=== PATIENT | male | born 1950 | race Caucasian/White ===

== ENCOUNTER → 2023-02-07 | Outpatient (CLI) | payer MEDICARE, SELFPAY | END | disposition home or self-care (01) | LOC: LABSPEC 16:44 | PROVIDERS: PCP Family Medicine; Referring Provider Otolaryngology; Visit Provider Otolaryngology | DX: H92.10 Otorrhea, unspecified ear (principal) | CPT/HCPCS: 87070; 87075; 87077; 87205 ==

== ENCOUNTER 2023-09-09 17:23 | Emergency (ER) | payer MEDICARE, SELFPAY ==
[2023-09-09] VITALS (8 sets, daily range): BP systolic 118–161; BP diastolic 61–85; PULSE 76–109; RESP 8–27; TEMP 37.1–39.3; O2SAT 94–100; BMI 33.2
--- NOTE | 2023-09-09 18:45 | EX.ED.DYSGE1 ---
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 Patient states earlier today, he felt like a truck hit me . He states he had the rigors, he checked his fever and it was greater than 100. Patient denies any cough, patient states when he urinates he does feel some pressure in his right flank however he has no blood, no other significant pain. Patient denies any nausea or vomiting. Denies any sick contacts. Denies any recent biotic use. [facility] <CYN Salcedo - Last Filed: 09/09/23 22:36> [facility] Medical History Bladder tumor Diabetes Hyperlipidemia Hypertension Home Medications atorvastatin 10 mg tablet 10 mg PO DAILY 09/09/23 [History Last Taken Unknown] bupropion HCl 150 mg 24 hr tablet, extended release 150 mg PO DAILY 09/09/23 [History Last Taken Unknown] docusate sodium 100 mg capsule 100 mg PO BID 09/09/23 [History Last Taken Unknown] levothyroxine 150 mcg tablet (Synthroid) 150 mcg PO DAILY 09/09/23 [History Last Taken Unknown] metformin 1,000 mg tablet 1,000 mg PO BID 09/09/23 [History Last Taken Unknown] metoprolol succinate 50 mg tablet,extended release 24 hr 50 mg PO DAILY 09/09/23 [History Last Taken Unknown] tamsulosin 0.4 mg capsule 0.4 mg PO QHS 09/09/23 [History Last Taken Unknown] triamterene 75 mg-hydrochlorothiazide 50 mg tablet 1 tab PO DAILY 09/09/23 [History Last Taken Unknown] valsartan 80 mg tablet 80 mg PO DAILY 09/09/23 [History Last Taken Unknown] Allergy/AdvReac Type Severity Reaction Status Date / Time EDNA Inhibitors AdvReac Mild Nausea/Vom/ Verified 09/09/23 17:29 Diarrhea erythromycin base AdvReac Mild Nausea/Vom/ Verified 09/09/23 17:29 Diarrhea promethazine AdvReac Mild Nausea/Vom/ Verified 09/09/23 17:29 Diarrhea valdecoxib AdvReac Mild Nausea/Vom/ Verified 09/09/23 17:29 Diarrhea Social History Smoking Status: Former smoker ROS <CYN Salcedo - Last Filed: 09/09/23 22:36> ROS ED ROS Narrative Constitutional: Negative for weight loss, weakness. Positive for fever and chills Eyes: Negative for vision loss, vision change, double vision ENT: Negative for any sore throat, ear pain, congestion Cardiovascular: Negative for any chest pain, tightness, palpitations Respiratory: Negative for any cough, sputum production, hemoptysis, dyspnea, dyspnea on exertion, orthopnea Gastrointestinal: Negative for any abdominal pain, nausea, vomiting, diarrhea, constipation, blood in stool, blood in vomit : Negative for any urinary frequency, dysuria, retention, blood in urine Muscle skeletal: Negative for any neck pain, back pain. Positive generalized myalgias Neurological: Negative for any headache, syncope, dizziness Skin: Negative for any rashes, itching, abrasions, lacerations Psychiatric: Negative for any depression, anxiety, stress, suicidal ideation, homicidal ideation Hematologic: Negative for any excessive bruising, easy bleeding EXAM <CYN Salcedo - Last Filed: 09/09/23 22:36> Physical Exam Narrative Exam Narrative: Vital signs reviewed. Patient is febrile on initial evaluation. Patient has not taken any Tylenol since 2 AM last evening. HEET: Head normocephalic atraumatic, TMs clear bilaterally. Posterior pharynx is clear, dry mucous membranes. Nares clear bilaterally. Neck: Supple with no lymphadenopathy or tenderness. No signs of meningismus. Cardiac: Regular rate and rhythm no murmurs gallops or rubs, equal peripheral pulses bilaterally. Respiratory: Lungs clear to auscultation bilaterally. No chest tenderness. Abdomen: Soft, nontender, nondistended. Patient does have multiple incisions that look well-healing, patient has no peritoneal signs. No drainage. No abdominal bruit or pulsatile masses. No hepatosplenomegaly Extremities: No peripheral edema, no signs of gross trauma or deformity. Active full range of motion of all extremities. Neuro: Cranial nerves II through XII intact, no focal neurological deficits. Skin: Clean dry and intact with no rash, purpura, petechiae, vesicles or pustules. Backs/flank: No CVA tenderness, no midline spinal tenderness, no deformity. Psych: Normal mood and affect. No SI, HI or acute psychosis. Const Vital Signs: 09/09/23 17:23 09/09/23 17:26 09/09/23 18:16 Temperature 102 F H 102.7 F H Temperature Source Oral Oral Pulse Rate 104 H 95 Respiratory Rate 19 H 20 H Respiratory Effort Normal Respiratory Pattern Normal Blood Pressure 161/82 H 118/61 Blood Pressure Mean 108 80 Pulse Ox 100 100 Oxygen Delivery Method Room Air Room Air 09/09/23 19:00 09/09/23 18:26 09/09/23 19:23 Temperature 99.9 F H 100.8 F H Temperature Source Oral Oral Pulse Rate 90 94 83 Respiratory Rate 8 L 27 H 19 H Respiratory Effort Respiratory Pattern Blood Pressure 131/63 H 135/69 H 127/75 H Blood Pressure Mean 85 91 92 Pulse Ox 99 94 95 Oxygen Delivery Method Room Air Room Air Room Air 09/09/23 21:00 09/09/23 21:00 Temperature 98.8 F Temperature Source Oral Pulse Rate 76 76 Respiratory Rate 25 H 25 H Respiratory Effort Respiratory Pattern Blood Pressure 121/62 H 121/62 H Blood Pressure Mean 81 81 Pulse Ox 97 97 Oxygen Delivery Method Room Air Room Air Positive well nourished and well developed General Appearance ED: well developed <Dr. Orlin Garber, DO - Last Filed: 09/09/23 22:40> Physical Exam Const Vital Signs: 09/09/23 17:23 09/09/23 17:26 09/09/23 18:16 Temperature 102 F H 102.7 F H Temperature Source Oral Oral Pulse Rate 104 H 95 Respiratory Rate 19 H 20 H Respiratory Effort Normal Respiratory Pattern Normal Blood Pressure 161/82 H 118/61 Blood Pressure Mean 108 80 Pulse Ox 100 100 Oxygen Delivery Method Room Air Room Air 09/09/23 19:00 09/09/23 18:26 09/09/23 19:23 Temperature 99.9 F H 100.8 F H Temperature Source Oral Oral Pulse Rate 90 94 83 Respiratory Rate 8 L 27 H 19 H Respiratory Effort Respiratory Pattern Blood Pressure 131/63 H 135/69 H 127/75 H Blood Pressure Mean 85 91 92 Pulse Ox 99 94 95 Oxygen Delivery Method Room Air Room Air Room Air 09/09/23 21:00 09/09/23 21:00 Temperature 98.8 F Temperature Source Oral Pulse Rate 76 76 Respiratory Rate 25 H 25 H Respiratory Effort Respiratory Pattern Blood Pressure 121/62 H 121/62 H Blood Pressure Mean 81 81 Pulse Ox 97 97 Oxygen Delivery Method Room Air Room Air [facility] <Davian Connor [employer] UP [employer]PERATOR-C - Last Filed: 09/09/23 22:36> [facility] Lab Data Labs: Laboratory Results - last 24 hr 09/09/23 09/09/23 09/09/23 18:30 18:42 18:50 WBC 11.3 H RBC 3.83 L Hgb 12.7 L Hct 34.3 L MCV 89.6 MCH 33.2 H MCHC 37.0 H RDW Std Deviation 40.1 RDW Coeff of Seth 12.3 Plt Count 276 MPV 10.5 Immature Gran % (Auto) 0.400 Neut % (Auto) 89.5 H Lymph % (Auto) 5.2 L [place] % (Auto) 4.4 Eos % (Auto) 0.3 Baso % (Auto) 0.2 Absolute Neuts (auto) 10.1 H Absolute Lymphs (auto) 0.59 L Nucleated RBC % 0 Differential Comment SEE COMMENT Platelet Estimate ADEQUATE RBC Morphology N CHROM Anisocytosis RARE Macrocytosis RARE Sodium 133 L Potassium 3.8 Chloride 96 L Carbon Dioxide 29.0 Anion Gap 8 BUN 18 Creatinine 1.71 H Estim Creat Clear Calc 53.94 Est GFR (MDRD) Af Amer 51 L Est GFR (MDRD) Non-Af 42 L BUN/Creatinine Ratio 10.5 Glucose 244 H Lactic Acid 3.1 H* Calcium 8.6 Urine Color Yellow Urine Clarity Cloudy Urine pH 6.5 Ur Specific Forest 1.010 Urine Protein 100 H Urine Glucose (UA) Normal Urine Ketones 5 H Urine Occult Blood 250 H Urine Nitrite Positive H Urine Bilirubin Negative Urine Urobilinogen Normal Ur Leukocyte Esterase 500 H Urine RBC > 100 SEEN Urine WBC 25-50 SEEN Ur Squamous Epith Cells 0 SEEN Urine Bacteria 1+ Urine Mucus 0 SEEN POC Glucose 09/09/23 21:56 WBC RBC Hgb Hct MCV MCH MCHC RDW Std Deviation RDW Coeff of Seth Plt Count MPV Immature Gran % (Auto) Neut % (Auto) Lymph % (Auto) [place] % (Auto) Eos % (Auto) Baso % (Auto) Absolute Neuts (auto) Absolute Lymphs (auto) Nucleated RBC % Differential Comment Platelet Estimate RBC Morphology Anisocytosis Macrocytosis Sodium Potassium Chloride Carbon Dioxide Anion Gap BUN Creatinine Estim Creat Clear Calc Est GFR (MDRD) Af Amer Est GFR (MDRD) Non-Af BUN/Creatinine Ratio Glucose Lactic Acid Calcium Urine Color Urine Clarity Urine pH Ur Specific [place] Urine Protein Urine Glucose (UA) Urine Ketones Urine Occult Blood Urine Nitrite Urine Bilirubin Urine Urobilinogen Ur Leukocyte Esterase Urine RBC Urine WBC Ur Squamous Epith Cells Urine Bacteria Urine Mucus POC Glucose 152 H Radiography Diagnostic Testing: Clinical Impression(s) from Imaging Studies Chest X-Ray 09/09/23 19:14 IMPRESSION: Old granulomatous disease. No acute cardiopulmonary pathology. Electronically Signed: Anselmo Chairez MD at 19:43 EDT , Abdomen/Pelvis CT 09/09/23 20:10 IMPRESSION: Mild right renal pelvocaliectasis and hydroureter with indwelling ureteral vesical stent. Possibility of stent obstruction cannot be excluded. CT scan with contrast or radionuclide renogram would be helpful for further evaluation if clinically warranted Nonspecific thickening of the espinoza of bladder. Cannot exclude cystitis. Electronically Signed: Anselmo Chairez MD at 21:25 EDT , Treatment and Re-Evaluation :: Differential diagnosis includes however is not limited to: Community-acquired pneumonia, viral-like illness such as COVID-19, influenza, UTI, pyelonephritis Patient appears to be in no respiratory distress, patient's vital signs are stable, patient is febrile my initial evaluation. However patient does not look septic. Patient will receive laboratory values CBC, BMP to ensure there is no leukocytosis, renal insufficiency, patient will receive a two-view chest x-ray, ruling out any community-acquired pneumonia. Patient received a COVID, influenza, and RSV swab, as well as a urinalysis. Patient be given Tylenol, IV fluids all radiologic examinations were read, reviewed by the emergency department attending. From these reads, a plan of care will be put in place. Patient CBC showed a leukocytosis with white blood count 11.3, slight anemia with a hemoglobin 12.7, patient's lactic acid was 3.1, creatinine is 1.7, I was able to look at the patient's creatinine over the last month, patient is normally around 2.0. Patient's chest x-ray shows no acute cardiopulmonary disease. Patient's urinalysis was positive for infection with 1+ bacteria 25-50 white blood cells, 500 leukocytes, positive nitrites, 20-50 of blood. Patient will be started on IV Rocephin after 2 sets of blood cultures drawn. Patient received a CT scan of the abdomen pelvis IV contrast. Patient reevaluation is feeling slightly improved. Patient CT scan of the abdomen pelvis shows a mild right renal pelvic oh callus stasis and hydroureter with indwelling ureteral vesicle stent. Possibility of stent obstruction cannot be excluded. Nonspecific thickening of the espinoza of the bladder. Cannot exclude cystitis. At this time, secondary to the patient having all of his urology workup at [facility], I do believe that it is important that the patient return there from a he can return to his specialist. The transfer process will be started. I spoke with [facility] transfer center, the patient will be excepted by Dr. Barron of urology. There is no need to do a conference. The patient is excepted. Currently waiting for room at [facility].. <Dr. Orlin Garber, DO - Last Filed: 09/09/23 22:40> [facility] Narrative Medical decision making narrative: Differential diagnosis includes however is not limited to: Community-acquired pneumonia, viral-like illness such as COVID-19, influenza, UTI, pyelonephritis Patient appears to be in no respiratory distress, patient's vital signs are stable, patient is febrile my initial evaluation. However patient does not look septic. Patient will receive laboratory values CBC, BMP to ensure there is no leukocytosis, renal insufficiency, patient will receive a two-view chest x-ray, ruling out any community-acquired pneumonia. Patient received a COVID, influenza, and RSV swab, as well as a urinalysis. Patient be given Tylenol, IV fluids all radiologic examinations were read, reviewed by the emergency department attending. From these reads, a plan of care will be put in place. Patient CBC showed a leukocytosis with white blood count 11.3, slight anemia with a hemoglobin 12.7, patient's lactic acid was 3.1, creatinine is 1.7, I was able to look at the patient's creatinine over the last month, patient is normally around 2.0. Patient's chest x-ray shows no acute cardiopulmonary disease. Patient's urinalysis was positive for infection with 1+ bacteria 25-50 white blood cells, 500 leukocytes, positive nitrites, 20-50 of blood. Patient will be started on IV Rocephin after 2 sets of blood cultures drawn. Patient received a CT scan of the abdomen pelvis IV contrast. Patient reevaluation is feeling slightly improved. Patient CT scan of the abdomen pelvis shows a mild right renal pelvic oh callus stasis and hydroureter with indwelling ureteral vesicle stent. Possibility of stent obstruction cannot be excluded. Nonspecific thickening of the espinoza of the bladder. Cannot exclude cystitis. At this time, secondary to the patient having all of his urology workup at [facility], I do believe that it is important that the patient return there from a he can return to his specialist. The transfer process will be started. I spoke with [facility] transfer center, the patient will be excepted by Dr. Barron of urology. There is no need to do a conference. The patient is excepted. Currently waiting for room at [facility]. Insert ED attestation. Patient presenting with fever, chills, body aches. Differential as above. Patient with recent procedure at [facility] by urology on his left ureter. Patient medicated with Tylenol, IV fluids. RSV, COVID, influenza were obtained to rule out sources of fever as he is not having significant flank pain. He is were all negative. Lab work shows that he has a minimally elevated white blood cell count 11.3. Hemoglobin 2.7. Renal function is elevated today 1.71 as his baseline is about 1.58 days ago. Lactic acid elevated 3.1. Urinalysis consistent with infection. Patient's fever has come down after Tylenol. Vital signs are stabilized. CT of the abdomen pelvis shows that he has a ureteral stent which he did not know he had. He also has a concern for obstructed stent on the CT which cannot be ruled out. Given that he has a UTI and recent procedure and we discussed this with urology at [facility] and the patient will be transferred there. Patient given Rocephin. Transferred in stable condition. Lab Data Labs: Laboratory Results - last 24 hr 09/09/23 09/09/23 09/09/23 18:30 18:42 18:50 WBC 11.3 H RBC 3.83 L Hgb 12.7 L Hct 34.3 L MCV 89.6 MCH 33.2 H MCHC 37.0 H RDW Std Deviation 40.1 RDW Coeff of Seth 12.3 Plt Count 276 MPV 10.5 Immature Gran % (Auto) 0.400 Neut % (Auto) 89.5 H Lymph % (Auto) 5.2 L [place] % (Auto) 4.4 Eos % (Auto) 0.3 Baso % (Auto) 0.2 Absolute Neuts (auto) 10.1 H Absolute Lymphs (auto) 0.59 L Nucleated RBC % 0 Differential Comment SEE COMMENT Platelet Estimate ADEQUATE RBC Morphology N CHROM Anisocytosis RARE Macrocytosis RARE Sodium 133 L Potassium 3.8 Chloride 96 L Carbon Dioxide 29.0 Anion Gap 8 BUN 18 Creatinine 1.71 H Estim Creat Clear Calc 53.94 Est GFR (MDRD) Af Amer 51 L Est GFR (MDRD) Non-Af 42 L BUN/Creatinine Ratio 10.5 Glucose 244 H Lactic Acid 3.1 H* Calcium 8.6 Urine Color Yellow Urine Clarity Cloudy Urine pH 6.5 Ur Specific [place] 1.010 Urine Protein 100 H Urine Glucose (UA) Normal Urine Ketones 5 H Urine Occult Blood 250 H Urine Nitrite Positive H Urine Bilirubin Negative Urine Urobilinogen Normal Ur Leukocyte Esterase 500 H Urine RBC > 100 SEEN Urine WBC 25-50 SEEN Ur Squamous Epith Cells 0 SEEN Urine Bacteria 1+ Urine Mucus 0 SEEN POC Glucose 09/09/23 21:56 WBC RBC Hgb Hct MCV MCH MCHC RDW Std Deviation RDW Coeff of Seth Plt Count MPV Immature Gran % (Auto) Neut % (Auto) Lymph % (Auto) [place] % (Auto) Eos % (Auto) Baso % (Auto) Absolute Neuts (auto) Absolute Lymphs (auto) Nucleated RBC % Differential Comment Platelet Estimate RBC Morphology Anisocytosis Macrocytosis Sodium Potassium Chloride Carbon Dioxide Anion Gap BUN Creatinine Estim Creat Clear Calc Est GFR (MDRD) Af Amer Est GFR (MDRD) Non-Af BUN/Creatinine Ratio Glucose Lactic Acid Calcium Urine Color Urine Clarity Urine pH Ur Specific [place] Urine Protein Urine Glucose (UA) Urine Ketones Urine Occult Blood Urine Nitrite Urine Bilirubin Urine Urobilinogen Ur Leukocyte Esterase Urine RBC Urine WBC Ur Squamous Epith Cells Urine Bacteria Urine Mucus POC Glucose 152 H Radiography Diagnostic Testing: Clinical Impression(s) from Imaging Studies Chest X-Ray 09/09/23 19:14 IMPRESSION: Old granulomatous disease. No acute cardiopulmonary pathology. Electronically Signed: Anselmo Chairez MD at 19:43 EDT , Abdomen/Pelvis CT 09/09/23 20:10 IMPRESSION: Mild right renal pelvocaliectasis and hydroureter with indwelling ureteral vesical stent. Possibility of stent obstruction cannot be excluded. CT scan with contrast or radionuclide renogram would be helpful for further evaluation if clinically warranted Nonspecific thickening of the espinoza of bladder. Cannot exclude cystitis. Electronically Signed: Anselmo Chairez MD at 21:25 EDT , <CYN Salcedo - Last Filed: 09/09/23 22:36> Critical Care Time Critical Care Time: Yes Critical care time (excluding procedures): 30-74 minutes, Discussing w/Patient &/or Family/Case Managers, Discussing w/Consultants, Arranging Admission or Transfer and Performing Direct Patient Care at Bedside Discharge Plan Triage Chief Complaint: Fever ED Midlevel Provider: Davian Connor ED Provider: Orlin Garber Dx/Rx/DC Orders Clinical Impression: Fever, Obstruction of urinary stent, Acute UTI Prescriptions: No Action atorvastatin 10 mg tablet 10 mg PO DAILY metoprolol succinate 50 mg tablet extended release 24 hr 50 mg PO DAILY valsartan 80 mg tablet 80 mg PO DAILY tamsulosin 0.4 mg capsule 0.4 mg PO QHS metformin 1,000 mg tablet 1,000 mg PO BID levothyroxine [Synthroid] 150 mcg tablet 150 mcg PO DAILY docusate sodium 100 mg capsule 100 mg PO BID triamterene-hydrochlorothiazid 75-50 mg tablet 1 tab PO DAILY bupropion HCl 150 mg tablet extended release 24 hr 150 mg PO DAILY Primary Care Provider: Paul Nguyen Referrals: Paul Nguyen MD [Primary Care Provider] - Disposition Disposition: Acute Care Hospital Discharge Location: [facility]
[2023-09-09] MEDS: 0.9% Normal Saline (1000mL) 1,000 ML 1000 ML IV (18:51)
[2023-09-09] MEDS: Acetaminophen 500 MG Tablet 1000 MG PO ×2 (18:51→23:34)
[2023-09-09 19:09] LABS: Absolute Lymphocyte Count 0.59 X10^3/uL (0.83-4.51); Absolute Neutrophil Count 10.1 X10^3/uL (2.0-7.7); Basophil# 0.02 X10^3/uL; Basophil% 0.2 % (0-1); Eosinophil# 0.03 X10^3/uL; Eosinophils% 0.3 % (0-5); Hematocrit 34.3 % (40-54); Hemoglobin 12.7 g/dL (13.0-16.5); Lymphocyte # 0.59 X10^3/ul (0.83-4.51); Lymphocyte % 5.2 % (19-41); Mean Corpuscular Hgb 33.2 pg (27.0-32.0); Mean Corpuscular Volume 89.6 fL (80-94); Mean Platelet Vol. 10.5 fl (6.2-12.0); Monocyte% 4.4 % (0-10); NRBC Flagged by Analyzer 0 % (0-5); Neutrophil # 10.14 X10^3/uL (2.7-7.7); Neutrophil % 89.5 % (47-70); POSITIVE DIFFERENTIAL YES; Platelet Count 276 K/mm3 (150-450); RBC Distribution Width CV 12.3 % (11.6-14.6); RBC Distribution Width SD 40.1 fl (35.1-43.9); Red Blood Count 3.83 M/mm3 (4.6-6.2); White Blood Count 11.3 K/mm3 (4.4-11.0)
[2023-09-09 19:10] LABS: Differential Indicated SCAN CRITERIA MET
--- NOTE | 2023-09-09 19:14 | RAD_ITS ---
STUDY: X-RAY CHEST REASON FOR EXAM: Male, 72 years old. cough TECHNIQUE: PA and lateral COMPARISON: None. FINDINGS: The lungs are clear and expanded. Tiny calcified granuloma in left lower lobe There is no demonstrated pleural abnormality. Normal size heart. Normal mediastinum and radha. Normal visualized pulmonary arteries. Normal visualized aortic arch and descending thoracic aorta. Dorsal spine demonstrates degenerative change. Normal visualized ribs, clavicles, and shoulders. There is no demonstrated abnormality of the visualized soft tissue structures of the upper abdomen. RAD/Chest PA and Lateral IMPRESSION: Old granulomatous disease. No acute cardiopulmonary pathology. Electronically Signed: Anselmo Chairez MD at 19:43 EDT ,
[2023-09-09 19:16] LABS: Mucous, Urine 0 SEEN /hpf (<or=2+); Squamous Epithelial Cells - UA 0 SEEN /hpf (0-5)
[2023-09-09 19:20] LABS: Color, Urine Yellow (Yellow); Glucose, Dipstick Normal (Normal); Ketone-Dipstick 5 mg/dl (Negative); Leukocyte Esterase-Dipstick 500 /ul (Negative); Nitrite-Dipstick Positive (Negative); Occult Blood-Urine 250 /ul (Negative); Protein-Dipstick 100 mg/dl (Negative); Urine Bilirubin Dipstick Negative (Negative); Urine Clarity Cloudy (Clear); Urine Urobilinogen Normal (Normal); Urine pH 6.5 (5.0 - 8.0)
[2023-09-09 19:26] LABS: Red Blood Cells-Urine > 100 SEEN /hpf (0-5); White Blood Cells 25-50 SEEN /hpf (0-5)
[2023-09-09 19:27] LABS: Bacteria 1+ /hpf (None Seen)
[2023-09-09 19:28] LABS: Anion Gap 8 (5-15); BUN 18 mg/dL (7-18); BUN/Creat Ratio 10.5 RATIO (10-20); Calcium,Total 8.6 mg/dL (8.5-10.1); Chloride 96 mmol/L (98-107); Creatinine, Serum 1.71 mg/dL (0.70-1.30); EST Glomerular Filtration Rate 42 mL/min (>60); Est Glom Filt Rate - Afr Amer 51 mL/min (>60); Estimated Creatinine Clearance 53.94 ml/min; Glucose 244 mg/dL (74-106); Potassium 3.8 mmol/L (3.5-5.1); Sodium Level 133 mmol/L (136-145)
[2023-09-09 19:42] LABS: Anisocytosis RARE; Macrocytosis RARE; Platelet Estimate ADEQUATE (ADEQ); Red Cell Morphology N CHROM NORMAL (NORM C&C)
[2023-09-09 19:50] LABS: Lactic Acid 3.1 mmol/L (0.4-1.9)
--- NOTE | 2023-09-09 20:10 | CT_ITS ---
STUDY: CT ABDOMEN AND PELVIS WITH CONTRAST REASON FOR EXAM: Male, 72 years old. abdominal pain RADIATION DOSAGE (If Supplied By Facility): CTDIvol = ( 16.48 ) mGy, DLP = ( 1269.27 ) mGycm TECHNIQUE: Transaxial images were obtained from the dome of the diaphragm to the symphysis pubis without oral contrast. IV 100mL [id number] was administered. Sagittal and coronal images were reconstructed. Individualized dose optimization techniques were used for this CT. COMPARISON: None. FINDINGS: The visualized lung bases are unremarkable. The visualized portions of the heart are within normal limits. Normal liver. Normal gallbladder and extrahepatic biliary system. Normal spleen. Normal pancreas. Normal bilateral adrenal glands. Mild right hydroureteronephrosis with stranding in the perinephric fat status post ureterovesical stent placement.. Normal left kidney. Normal visualized stomach. Normal small intestine. Diverticular disease of the colon without evidence for acute diverticulitis. No evidence for acute appendicitis Normal abdominal aorta. Normal inferior vena cava. Normal retroperitoneum. Nonspecific thickening of the bladder wall. Cannot exclude cystitis. Small fat-containing left inguinal hernia. Lumbar spine demonstrates degenerative changes and chronic wedging of L1 CT/Abdomen/Pelvis W IV Cont ONLY IMPRESSION: Mild right renal pelvocaliectasis and hydroureter with indwelling ureteral vesical stent. Possibility of stent obstruction cannot be excluded. CT scan with contrast or radionuclide renogram would be helpful for further evaluation if clinically warranted Nonspecific thickening of the espinoza of bladder. Cannot exclude cystitis. Electronically Signed: Anselmo Chairez MD at 21:25 EDT ,
[2023-09-09] MEDS: Ceftriaxone 1 GM/50 ML BAG IV (21:50)
[2023-09-09] MEDS: 0.9% Normal Saline (1000mL) 1,000 ML 999 ML IV (21:52)
[2023-09-09 22:14] LABS: Bedside Glucose 152 mg/dL (74-106)
[2023-09-09 22:53] LABS: Reflex Lactate? Y
[2023-09-10] VITALS: BP 130/69; PULSE 109; RESP 19; TEMP 38.3; O2SAT 96
[2023-09-10 00:31] VITALS: TEMP 37.9
[2023-09-10 01:00] VITALS: BP 116/62; PULSE 90; RESP 21; TEMP 37.8; O2SAT 95
[2023-09-10 02:00] VITALS: BP 133/67; BP 138/66; PULSE 87; RESP 19; TEMP 37.7; O2SAT 97
[2023-09-10 03:00] VITALS: BP 154/89; PULSE 100; RESP 21; TEMP 37.3; O2SAT 96
[2023-09-10] MEDS: Acetaminophen 500 MG Tablet 1000 MG PO (04:07)
[2023-09-10 04:09] VITALS: BP 152/83; PULSE 104; RESP 19; TEMP 39.4; O2SAT 97
== END 2023-09-10 04:10 | disposition short-term general hospital (02) ==
PROVIDERS: Nurse Practitioner; Emergency Provider Student in an Organized Health Care Education/Training Program; PCP Family Medicine; Visit Provider Student in an Organized Health Care Education/Training Program
DX: R50.9 Fever, unspecified (principal); E11.9 Type 2 diabetes mellitus without complications; N39.0 Urinary tract infection, site not specified; E78.5 Hyperlipidemia, unspecified; I10 Essential (primary) hypertension; Z79.84 Long term (current) use of oral hypoglycemic drugs; Z79.899 Other long term (current) drug therapy; Z87.891 Personal history of nicotine dependence
CPT/HCPCS: 71046; 74177; 80048; 81001; 82962; 83605; 85025; 87040; 87631; 96365; 96366; 99283; J7030; Q9967; A4216